=== PATIENT | male | born 1985 | race Caucasian/White ===

== ENCOUNTER → 2019-02-04 | Outpatient (CLI) | payer SELFPAY | PROVIDERS: Family Provider Family Medicine; PCP Family Medicine; Visit Provider Family Medicine | DX: K76.0 Fatty (change of) liver, not elsewhere classified (principal); R94.5 Abnormal results of liver function studies | CPT/HCPCS: 76705 ==

== ENCOUNTER → 2019-04-12 09:40 | Outpatient (BNVA) | payer OTHER, SELFPAY | PROVIDERS: Family Provider Family Medicine; PCP Family Medicine; Visit Provider Family Medicine | DX: E78.2 Mixed hyperlipidemia (principal); G47.26 Circadian rhythm sleep disorder, shift work type; G47.11 Idiopathic hypersomnia with long sleep time | CPT/HCPCS: 80053 ==

== ENCOUNTER → 2019-06-12 12:00 | Outpatient (BNVA) | payer OTHER, SELFPAY | PROVIDERS: Family Provider Family Medicine; PCP Family Medicine; Visit Provider Family Medicine | DX: E78.2 Mixed hyperlipidemia (principal); G47.11 Idiopathic hypersomnia with long sleep time | CPT/HCPCS: 80053; 80061; 80307 ==

== ENCOUNTER → 2019-12-09 11:56 | Outpatient (BNVA) | payer OTHER, SELFPAY | PROVIDERS: Family Provider Family Medicine; PCP Family Medicine; Visit Provider Family Medicine | DX: E78.2 Mixed hyperlipidemia (principal); E05.00 Thyrotoxicosis with diffuse goiter without thyrotoxic crisis or storm | CPT/HCPCS: 80053; 80061; 84439; 84443; 84480 ==

== ENCOUNTER → 2020-10-06 10:02 | Outpatient (BNVA) | payer OTHER, SELFPAY | PROVIDERS: Family Provider Family Medicine; PCP Family Medicine; Visit Provider Family Medicine | DX: E78.2 Mixed hyperlipidemia (principal); G47.11 Idiopathic hypersomnia with long sleep time | CPT/HCPCS: 80053; 80061 ==

== ENCOUNTER → 2021-09-07 12:29 | Outpatient (BNVA) | payer OTHER, SELFPAY | PROVIDERS: Family Provider Family Medicine; PCP Family Medicine; Visit Provider Family Medicine | DX: E78.2 Mixed hyperlipidemia (principal); G47.11 Idiopathic hypersomnia with long sleep time; G47.26 Circadian rhythm sleep disorder, shift work type | CPT/HCPCS: 80053; 80061; 85025 ==

== ENCOUNTER → 2023-08-18 14:04 | Outpatient (BNVA) | payer OTHER, SELFPAY | PROVIDERS: Family Provider Family Medicine; PCP Family Medicine; Visit Provider Family Medicine | DX: E05.00 Thyrotoxicosis with diffuse goiter without thyrotoxic crisis or storm (principal) | CPT/HCPCS: 80053; 80061; 84439; 84443; 85025 ==